=== PATIENT | male | born 1995 | race Caucasian/White ===

== ENCOUNTER → 2017-11-12 | Outpatient (CLI) | payer BC | END | disposition home or self-care (01) | LOC: EEG 08:00 | DX: R00.1 Bradycardia, unspecified (principal); R20.2 Paresthesia of skin | CPT/HCPCS: 95954 ==

== ENCOUNTER 2017-11-22 14:32 | Emergency (ER) | payer BC ==
[~2017-11-22] VITALS: Ht 182.9 cm; Wt 91.0 kg
[2017-11-22] MEDS ORDERED: ZOFRAN4 MG PO (16:50)
[2017-11-22 17:27] VITALS: BP 146/95
== END 2017-11-22 17:30 | disposition home or self-care (01) ==
LOC: EME 14:32
DX: F41.1 Generalized anxiety disorder (principal); T43.225A Adverse effect of selective serotonin reuptake inhibitors, initial encounter; R11.2 Nausea with vomiting, unspecified; R19.7 Diarrhea, unspecified; R53.83 Other fatigue; G47.9 Sleep disorder, unspecified; I10 Essential (primary) hypertension; F32.9 Major depressive disorder, single episode, unspecified
CPT/HCPCS: 90839; 99281; 99283; Q0177